=== PATIENT | male | born 1980 | race Two or more races ===

== ENCOUNTER 2020-06-11 13:05 | Emergency (ER) | payer OTHER ==
[~2020-06-11] VITALS: Ht 167.6 cm; Wt 74.8 kg
--- NOTE | 2020-06-11 14:00 | NUR ---
noticed left shoulder lump yesterday. PT AAAOX4, VSS. RR EVEN & UNLABORED. DENIES CP, SOB, DIZZINESS, N/V AT THIS TIME. AWAITING EVAL BY MIKE. WILL CONT TO MONITOR.
[2020-06-11 14:25] LABS: BASOPHILS % (AUTO) 0.5 % (0.0-2.0); EOSINOPHILS % (AUTO) 5.4 % (0.0-6.0); HEMATOCRIT 45 % (39-51); HEMOGLOBIN 15.3 g/dL (13.5-17.5); LYMPHOCYTES # (AUTO) 0.4 /CMM (0.8-4.8); LYMPHOCYTES % (AUTO) 7.5 % (20.0-44.0); MEAN CORPUSCULAR HGB CONC 34 g/dl (31.0-36.0); MEAN CORPUSCULAR VOLUME 85 fL (80-96); MONOCYTES # (AUTO) 0.7 /CMM (0.1-1.30); MONOCYTES % (AUTO) 11.9 % (2.0-12.0); NEUTROPHILS # (AUTO) 4.1 /CMM (1.8-8.9); NEUTROPHILS % (AUTO) 74.7 % (43.0-81.0); PLATELET COUNT (AUTO) 300 /CMM (150-450); WHITE BLOOD COUNT (AUTO) 5.5 K/uL (4.3-11.0)
[2020-06-11 14:33] LABS: CALCIUM, SERUM 9.5 mg/dL (8.5-10.1); CREATININE 1.3 mg/dL (0.6-1.3); POTASSIUM 3.8 mmol/L (3.5-5.1)
[2020-06-11 14:39] LABS: BILIRUBIN,DIRECT 0.1 mg/dL (0.0-0.2); BILIRUBIN,TOTAL 0.5 mg/dL (0.2-1.0); TOTAL PROTEIN, SERUM 7.6 g/dL (6.4-8.2)
[2020-06-11] MEDS ORDERED: IV NS 0.9% 250 ML IV ONE (14:47)
[2020-06-11] MEDS ORDERED: IOHEXOL-300 100 ML VIAL IV ONE (14:47)
[2020-06-11] MEDS ORDERED: CT SWABBABLE VALVE TRANS SET 1 EA INFUS.SET MC ONE (14:47)
--- NOTE | 2020-06-11 16:15 | NUR ---
Patient is resting comfortably in bed with eyes closed. Easily aroused. VSS
--- NOTE | 2020-06-11 17:33 | NUR ---
LAB CALLED RAPID COVID-19 NEG. (-)
--- NOTE | 2020-06-11 18:29 | NUR ---
PT STABLE, DENIES CP, SOB, DIZZINESS, N/V OR ANY DISCOMFORT @ THIS TIME. WILL CONT TO MONITOR.
--- NOTE | 2020-06-11 18:40 | NUR ---
CALLED SHAWN JARAMILLO AT [facility] [phone]
--- NOTE | 2020-06-11 18:45 | NUR ---
CALLED DR. PINEDA,B. [phone] M[address] SPEAKING WITH [address] PINEDA.
--- NOTE | 2020-06-11 18:54 | NUR ---
CALLED ER [phone] TO GET CARDIO THORACIC MALIKMIR [phone] LEFT MSG.
--- NOTE | 2020-06-11 19:38 | NUR ---
REPAGED DR. ALMARAZ
--- NOTE | 2020-06-11 20:14 | NUR ---
[facility] CALLED FOR HIGHERL LEVEL OF CARE. NO BEDS AVAILABLE.
--- NOTE | 2020-06-11 20:30 | NUR ---
PT AAOX4, VSS. RR EVEN & UNLABORED. DENIES CP, SOB, DIZZINESS, N/V AT THIS TIME. WILL CONT TO MONITOR.
--- NOTE | 2020-06-11 20:31 | NUR ---
PER DR MURPHY PT ACCEPTED AT [facility] BY DR PINEDA AND DR ALMARAZ. FAXED INFO TO SHAWN JARAMILLO AT [phone]. TRANSPORT AUTH# [id number]
--- NOTE | 2020-06-11 21:50 | NUR ---
REPORT GIVEN TO ANA LILIA JOYCE PRES ER CHARGE NURSE.
--- NOTE | 2020-06-11 21:54 | NUR ---
[facility] CALLED FOR BLS TRANSPORT. ETA 2 HRS.
[2020-06-12 00:04] VITALS: BP 135/88
--- NOTE | 2020-06-12 00:08 | NUR ---
REPORT GIVEN TO [facility]. PT STABLE FOR TRANSPORT
--- NOTE | 2020-06-12 00:08 | NUR ---
[facility] AT BEDSIDE FOR TRANSPORT.
== END 2020-06-12 00:11 | disposition short-term general hospital (02) ==
LOC: ER 13:05
DX: C85.90 Non-Hodgkin lymphoma, unspecified, unspecified site (principal); J90 Pleural effusion, not elsewhere classified; R59.0 Localized enlarged lymph nodes; Z20.828 Contact with and (suspected) exposure to other viral communicable diseases
CPT/HCPCS: 36415; 70491; 71045; 71260; 80048; 80076; 85025; 85730; 87426; 93971; 99291; C9803; J7030; J7050; Q9967